=== PATIENT | female | born 1995 | race Caucasian/White ===

== ENCOUNTER 2021-11-06 07:15 | Emergency (ER) | payer OTHER ==
[~2021-11-06 07:15] MED LIST: BACTRIM DS TAB1 EACH PO; IBUPROFEN800 MG PO; NORCO 5-325 TA1 EACH PO
[2021-11-06 08:09] LABS: BASOPHIL 0.7 % (0-2); EOSINOPHIL 1.2 % (0-5); HCT 37.6 % (37.0-47.0); LYMPHOCYTE 27.3 % (15-48); MCH 31.6 pg (25.0-31.0); MCHC 34.6 g/dL (32.0-36.0); MCV 91.3 fL (78.0-100.0); MONOCYTE 7.7 % (0-12); MPV 11.4 fL (6.0-9.5); NRBC 0; PLT 147 K/uL (150-400); RBC 4.12 M/uL (4.20-5.40); RDW 11.4 % (11.5-14.0); WBC 6.7 K/uL (4.0-10.5)
[2021-11-06 08:28] LABS: BUN/CREAT RATIO (CALC) 19.3 RATIO; CREATININE 0.57 mg/dL (0.51-0.95); POTASSIUM 3.8 mmol/L (3.5-5.1)
[2021-11-06 09:49] LABS: BILIRUBIN NEGATIVE (NEGATIVE); BLOOD 3+ Ery/uL (NEGATIVE); CLARITY CLEAR (CLEAR); COLOR YELLOW (YELLOW); GLUCOSE (U) NORMAL (NORMAL); LEUKOCYTES NEGATIVE Leu/uL (NEGATIVE); NITRITE NEGATIVE (NEGATIVE); PROTEIN NEGATIVE (NEGATIVE); SPECIFIC GRAVITY 1.025 (1.001-1.030); UROBILINOGEN 0.2 mg/dL (0.2-1.0)
[2021-11-06 09:55] LABS: BACTERIA TRACE; MUCOUS TRACE
== END 2021-11-06 11:19 | disposition home or self-care (01) ==
LOC: FER 07:15
PROVIDERS: Emergency Medicine
DX: O03.9 Complete or unspecified spontaneous abortion without complication (principal); Z28.310 Unvaccinated for COVID-19
CPT/HCPCS: 36415; 36430; 76830; 80048; 81001; 84702; 85025; 86850; 86900; 86901; J2790